=== PATIENT | female | born 2000 | race Caucasian/White ===

== ENCOUNTER 2025-05-18 15:51 | Emergency (ER) | payer MEDICAID, SELFPAY ==
[2025-05-18 18:12] LABS: Pregnancy Test - Urine (BHCG) Negative (Negative); Pregu Control Background? CLEAR/WHITE (CLR/WHITE); Pregu Control Bar Appear? YES (CONTROL BAR)
[2025-05-18 18:26] LABS: Bacteria/HPF 1+ HPF (None Seen); CAUTI Indications for Culture Dysuria,urgency,freq; Glucose, Urine (Dipstick) Normal (Negative); Leukocyte 500 Leu/uL (Negative); Protein, Urine (Dipstick) Negative (Neg-Trace); RBC/HPF 0-3 HPF (0-3); Specific Gravity, Urine 1.010 (1.002-1.036); WBC/HPF 21-50 HPF (0-3)
[2025-05-18 18:27] LABS: Urine Culture Reflex Yes Yes
[2025-05-18] MEDS ORDERED: cefTRIAXone (ROCEPHIN) 500 MG VIAL ONE (19:03)
[2025-05-18] MEDS ORDERED: Lidocaine 1% PF 5 ML VIAL ONE (19:03)
[2025-05-18] MEDS ORDERED: Azithromycin 250 MG TAB ONE (19:09)
[2025-05-19 05:14] LABS: Chlamydia by PCR, Vaginal Swab Not Detected (NotDetected); GC by PCR, Vaginal Swab Not Detected (NotDetected)
== END 2025-05-18 19:26 | disposition home or self-care (01) ==
LOC: ERS 15:51
DX: N76.0 Acute vaginitis (principal); F17.290 Nicotine dependence, other tobacco product, uncomplicated; Z11.3 Encounter for screening for infections with a predominantly sexual mode of transmission; Z32.02 Encounter for pregnancy test, result negative
CPT/HCPCS: 12011; 81001; 81025; 87086; 87480; 87491; 87510; 87591; 87660; 90471; 96372; J0696